=== PATIENT | female | born 1985 | race Caucasian/White ===

== ENCOUNTER 2016-10-08 07:18 | Day surgery (SDC) | payer OTHER ==
[~2016-10-08] VITALS: Ht 167.6 cm; Wt 56.4 kg
[2016-10-08 07:47] VITALS: BP 108/70
[2016-10-08 08:05] VITALS: BP 108/70
[2016-10-08] MEDS ORDERED: OXYTOCIN 10 UNITS/ML, 1ML ONE (08:11)
[2016-10-08] MEDS ORDERED: MISOPROSTOL 200 MCG TABLET ONE (08:11)
[2016-10-08] MEDS ORDERED: METHYLERGONOVINE 0.2 MG/ML IM ONE (08:12)
[2016-10-08] MEDS ORDERED: ROCURONIUM 10 MG/ML ONE (08:56)
[2016-10-08] MEDS ORDERED: DEXAMETHASONE 4 MG/ML, 1ML ONE (08:56)
[2016-10-08] MEDS ORDERED: PROPOFOL 10 MG/ML, 20ML ONE (08:56)
[2016-10-08] MEDS ORDERED: SUCCINYLCHOLINE 20 MG/ML, 10ML ONE (08:56)
[2016-10-08] MEDS ORDERED: ONDANSETRON 2MG/ML, 2ML ONE ×2 (08:56→09:51)
[2016-10-08] MEDS ORDERED: MIDAZOLAM 1 MG/ML, 2ML ONE (08:57)
[2016-10-08] MEDS ORDERED: FENTANYL PF 250 MCG/5ML ONE (08:57)
[2016-10-08] MEDS ORDERED: ACETAMINOPHEN 325 MG TABLET PO PRN (09:30)
[2016-10-08] MEDS ORDERED: METOCLOPRAMIDE 5 MG/ML, 2ML IV PRN (09:30)
[2016-10-08] MEDS ORDERED: PLEASE ENTER ALLERGIES MC SCH ×2 (09:30)
[2016-10-08] MEDS ORDERED: LABETALOL 5MG/ML, 20ML IV PRN (09:30)
[2016-10-08] MEDS ORDERED: HYDROmorphone 1 MG/ML, 1ML IV PRN (09:30)
[2016-10-08] MEDS ORDERED: ONDANSETRON 2MG/ML, 2ML IVPush PRN (09:30)
[2016-10-08] MEDS ORDERED: hydrALAzine 20 MG/ML, 1ML IV PRN (09:30)
[2016-10-08] MEDS ORDERED: OXYcodone 5 MG/5 ML ORAL.SOL UDC PO PRN (09:30)
[2016-10-08] MEDS ORDERED: ACETAMINOPHEN 650 MG/20.3 ML UDC ONE (09:48)
[2016-10-08] MEDS ORDERED: OXYcodone 5 MG/5 ML ORAL.SOL UDC ONE (09:49)
[2016-10-08] MEDS ORDERED: ACETAMINOPHEN 325 MG TABLET ONE (09:49)
[2016-10-08] MEDS ORDERED: FENTANYL PF 100 MCG/2ML ONE ×2 (09:51→10:25)
[2016-10-08] MEDS: FENTANYL PF 100 MCG/2ML IV PRN ×3 (10:05→10:30)
== END 2016-10-08 12:45 | disposition home or self-care (01) ==
LOC: OR 07:18 → 4NOR 07:31 → OR 12:45
PROVIDERS: ATTEND Obstetrics & Gynecology
DX: Z33.2 Encounter for elective termination of pregnancy (principal); Q04.8 Other specified congenital malformations of brain; O35.8XX0 Maternal care for other (suspected) fetal abnormality and damage, not applicable or unspecified; Z3A.14 14 weeks gestation of pregnancy; Z98.890 Other specified postprocedural states
CPT/HCPCS: 36415; 59821; 86850; 86900; 88300; J0330; J1100; J2250; J2405; J2704; J3010; J2210; J2590

== ENCOUNTER → 2017-02-17 | Outpatient (CLI) | payer OTHER | END | disposition home or self-care (01) | LOC: CFH 15:30 | PROVIDERS: ATTEND Nurse Practitioner Family | DX: O92.29 Other disorders of breast associated with pregnancy and the puerperium (principal); Z3A.31 31 weeks gestation of pregnancy ==